=== PATIENT | female | born 1990 | race Two or more races ===

== ENCOUNTER 2023-10-12 00:55 | Emergency (ER) | payer SELFPAY ==
[~2023-10-12] VITALS: Ht 170.2 cm; Wt 128.0 kg
[~2023-10-12 00:55] MED LIST: ALBU108A5 IN; FLU220IH INH; LEVO750T8 PO; PRED20TA2 PO
[2023-10-12] MEDS: IPRATROPIUM BROM 0.5 MG/2.5ML INH SOL NEB ONE ×2 (01:17→04:30)
[2023-10-12] MEDS: ALBUTEROL SULF 2.5 MG/0.5ML(0.5%) NEB SOLN NEB ONE ×2 (01:17→04:30)
[2023-10-12] MEDS: DexAMETHasone SOD PHOS 10MG/1ML VIAL INJ IM ONE (04:04)
[2023-10-12 04:14] VITALS: BP 142/71; PULSE 104; RESP 24; TEMP 98.3
[2023-10-12 04:30] VITALS: O2SAT 91
[2023-10-12] MEDS: MAGNESIUM SULFATE 1GM/100ML 100 ML IV SCH (04:33)
[2023-10-12] MEDS ORDERED: ALBU108A5 IN (05:07)
[2023-10-12] MEDS ORDERED: AZIT500T66 PO (05:07)
[2023-10-12] MEDS ORDERED: PRED20TA2 PO (05:07)
== END 2023-10-12 05:18 | disposition home or self-care (01) ==
LOC: ER 00:55
DX: J45.901 Unspecified asthma with (acute) exacerbation (principal); J18.9 Pneumonia, unspecified organism
CPT/HCPCS: 71045; 94640; 96365; 96372; 99284; J1100; J3475; J7644